=== PATIENT | male | born 1950 | race African-American/Black ===

== ENCOUNTER 2020-01-24 07:49 | Outpatient (CLI) | payer OTHER ==
[2020-01-24] MEDS ORDERED: FENTANYL PF 100 MCG/2ML ONE ×2 (08:40)
[2020-01-24] MEDS ORDERED: FLUMAZENIL 0.1 MG/1 ML, 5ML ONE (08:41)
[2020-01-24] MEDS ORDERED: NALOXONE 1 MG/ML, 2ML ONE (08:41)
[2020-01-24] MEDS ORDERED: MIDAZOLAM 1 MG/ML, 5ML ONE (08:41)
== END 2020-01-24 23:59 | disposition home or self-care (01) ==
LOC: RAD 07:49
PROVIDERS: ATTEND Family Medicine
DX: M54.12 Radiculopathy, cervical region (principal); M48.02 Spinal stenosis, cervical region; M43.12 Spondylolisthesis, cervical region; M25.78 Osteophyte, vertebrae; G31.89 Other specified degenerative diseases of nervous system; E11.9 Type 2 diabetes mellitus without complications; I10 Essential (primary) hypertension; Z88.5 Allergy status to narcotic agent
CPT/HCPCS: 70551; 72141; 99156; 99157; J2250; J3010; J2310